=== PATIENT | male | born 2000 | race Caucasian/White ===

== ENCOUNTER 2023-04-24 00:21 | Emergency (ER) | payer MEDICAID ==
[~2023-04-24] VITALS: Wt 86.2 kg
== END 2023-04-24 03:05 | disposition home or self-care (01) ==
LOC: ED 00:21
DX: S61.211A Laceration without foreign body of left index finger without damage to nail, initial encounter (principal); W26.0XXA Contact with knife, initial encounter; Y93.89 Activity, other specified; Y92.89 Other specified places as the place of occurrence of the external cause; Y99.8 Other external cause status